=== PATIENT | female | born 1930 | race Caucasian/White ===

== ENCOUNTER 2021-03-16 10:59 | Emergency (ER) | payer MEDICARE, OTHER ==
[~2021-03-16] VITALS: Ht 157.5 cm; Wt 52.7 kg
--- NOTE | 2021-03-16 11:14 | PHYS DOC ---
General Adult HPI: HPI: Patient is a 89-year-old female who presents for fall. This was witnessed, patient is here with daughter who is primary historian is patient has Alzheimer's dementia. Daughter reports they were shopping at [employer] and daughter claims "it was my fault, she wanted to push the cart by herself and I let her. She lost balance and started falling backwards and I could not catch her". States patient fell backwards hitting her posterior head, there was no loss of consciousness or seizure-like activity, patient has been at baseline mentation, no bladder or bowel incontinence since accident. There were no prodromal symptoms reported per daughter and patient. Daughter does report that patient is seen in outpatient setting by a memory life care planner, it was recommended that she come have a urinalysis performed Review of Systems: Review of Systems: Fourteen body systems of review of systems have been reviewed. See HPI for pertinent positives and negative responses, other vázquez all other systems are negative, non-pertinent or non-contributory Heart Score: C/O Chest Pain: No HEART Score for Chest Pain: HEART Score for Chest Pain Response (Comments) Value History Slighlty/Non-Suspicious 0 ECG Nonspecific Repolarizatio 1 Age > 65 2 Risk Factors >3 Risk Factors or Hx CAD 2 Troponin < Normal Limit 0 Total 5 Risk Factors: Risk Factors: DM, Current or recent (<one month) smoker, HTN, HLP, family history of CAD, obesity. Risk Scores: Score 0 - 3: 2.5% MACE over next 6 weeks - Discharge Home Score 4 - 6: 20.3% MACE over next 6 weeks - Admit for Clinical Observation Score 7 - 10: 72.7% MACE over next 6 weeks - Early Invasive Strategies Physical Exam: PE: Constitutional: Ambulatory and able to transfer with assistance to ER cot. Pt appears well- developed and well-nourished. Age-appropriate in no acute distress HEENT: Head: Normocephalic with mild hematoma present to posterior occiput and minute laceration proximately 1 mm noted to posterior occiput with minimal bleeding present TMs clear, no hemotympanum Conjunctivae and EOM are normal. Pupils are equal, round, and reactive to light. Oropharynx is clear and moist. OP clear, no blood, no malocclusion, dentition intact Nares clear, no nasal septal hematoma Midface stable Neck: C-spine midline nontender, no step-offs Cardiovascular: Normal rate, regular rhythm and normal heart sounds. Pulmonary/Chest: Effort normal and breath sounds normal. No respiratory distress. No wheezes. CTA bilaterally Abdominal: Soft. Bowel sounds are normal. Pt exhibits no distension. There is no tenderness. Musculoskeletal: No bony tenderness to extremities, no deformities, full ROM extremities Chest wall stable Pelvis stable and non-tender No vertebral TTP and spine without stepoffs Neurological: Moving all extremities willfully, able to wiggle all fingers and toes Alert and oriented to person, at baseline mentation per daughter who is at bedside Motor and sensory function fully intact No saddle anesthesia Cranial nerves II through XII intact Skin: Skin is warm and dry. No abrasions, laceration to posterior head only as noted above Psychiatric: Behavior is appropriate for situation. Impaired memory secondary to Alzheimer's dementia Current Patient Data: Labs: Laboratory Tests Test 03/16/21 11:18 Urine Collection Type Unknown Urine Color Yellow Urine Clarity Clear Urine pH 5.5 Urine Specific [place] 1.010 Urine Protein Negative mg/dL Urine Glucose (UA) Negative mg/dL Urine Ketones (Stick) Negative mg/dL Urine Blood Trace Urine Nitrite Negative Urine Bilirubin Negative Urine Urobilinogen Dipstick 0.2 mg/dL Urine Leukocyte Esterase Small Urine RBC Occ /HPF Urine WBC Occ /HPF Urine Squamous Epithelial Cells Few /LPF Urine Renal Epithelial Cells Occ /LPF Urine Bacteria 0 /HPF Current Medications Medications (Trade) Dose Ordered Sig/Salvador Route PRN Reason Start Time Stop Time Status Last Admin Dose Admin Cefdinir (Omnicef) 300 mg BID PO 03/16/21 12:30 03/16/21 13:38 DC 03/16/21 12:50 Diphtheria/ Tetanus/Acell Pertussis (ADACEL TDap SYRINGE) 0.5 ml ONCE ONCE VAX IM 03/16/21 12:30 03/16/21 12:31 DC 03/16/21 12:52 Vital Signs: Vital Signs Date Time Temp Pulse Resp B/P (MAP) Pulse Ox O2 Delivery O2 Flow Rate FiO2 03/16/21 11:20 99.0 81 16 182/79 (113) 96 Room Air 99.0 Vital Signs Date Time Temp Pulse Resp B/P (MAP) Pulse Ox O2 Delivery O2 Flow Rate FiO2 03/16/21 11:20 99.0 81 16 182/79 (113) 96 Room Air 99.0 EKG: EKG: EKG ordered and interpreted by myself 11 954 hours as a ventricular paced rhythm at 75 bpm, QRS 156, QTc 497 otherwise unremarkable intervals, left axis deviation, T wave inversion noted in lead aVR, no STEMI Radiology/Procedures: Radiology/Procedures: EXAM: CT head and cervical spine without contrast INDICATION: Fall 2 posterior head. On Plavix COMPARISON: CT head and C-spine 11/11/2020 TECHNIQUE: Axial CT imaging through the head and cervical spine without intravenous contrast. Sagittal and coronal reformats were obtained. One or more of the following individualized dose reduction techniques were utilized for this examination: 1. Automated exposure control 2. Adjustment of the mA and/or kV according to patient size 3. Use of iterative reconstruction technique. FINDINGS: CT head: No intracranial hemorrhage, acute infarct, or mass lesion. Ventricles and sulci are moderately enlarged, unchanged. There is mild periventricular deep white matter hypoattenuation. The skull is intact. Paranasal sinuses and mastoid air cells are clear. Globes and orbits are intact. There is a large posterior scalp hematoma. CT cervical spine: No acute fracture. Alignment is normal. There is mild disc space narrowing at C3-C4 through C6-C7. There is mild multilevel facet arthrosis and uncovertebral joint proliferation resulting in foraminal narrowing at C3 C4-C7, greatest at C5-C6. Small disc complexes at C3 and C3-C4. Prevertebral soft tissues normal. The opacifications the carotid arteries. IMPRESSION: 1. No acute intracranial abnormality. Large posterior scalp hematoma. 2. No acute osseous abnormality of the cervical spine. Electronically signed by: Laura Neal MD (03/16/2021 12:09 PM) [id number] Course & Med Decision Making: Course & Med Decision Making ABCs unremarkable. I disclosed entirety of ER findings and discussed most likely diagnosis of simple head laceration and high risk individual and complicated UTI. Wound cleaned and irrigated, evaluated for foreign bodies but none were present. I discussed potential need for intervention but given size, joint decision between myself and daughter to defer, head was wrapped with gauze and supportive care advised. Tetanus vaccine updated. Given patient's recent UTI symptoms and urinalysis today, joint decision to treat for complicated UTI with cefdinir. Patient tolerated 1 dose in ER with subsequent prescription written. Ultimately I discussed need for close outpatient follow-up, patient has memory unit physician follow-up tomorrow which I advised her to keep to review today's ER visit. Strict return precautions were also discussed at length with good understanding by patient's daughter. Patient's daughter voiced understanding and agreement with the plan. Patient's daughter knows to come back for repeat evaluation if concerning signs or symptoms present prior to outpatient follow- up. Hemodynamically stable, ambulatory and well-appearing at time of disposition. Dragon Disclaimer: Dragon Disclaimer: This electronic medical record was generated, in whole or in part, using a voice recognition dictation system. Departure Departure Impression: Primary Impression: Fall Additional Impressions: Laceration of head Complicated UTI (urinary tract infection) Disposition: HOME / SELF CARE / HOMELESS Condition: STABLE Referrals: JAIDA LEE DO (PCP) Patient Instructions: Facial or Scalp Contusion, Laceration Care, Adult Additional Instructions: As discussed prior to your departure, your vitals, physical examination and comprehensive work-up was unremarkable for any emergent or surgical issues. With that said, you did suffer a small laceration and subsequent hematoma to your posterior head. Nothing of which required aggressive intervention such as sutures or advanced repair. Your tetanus was updated today. Please use attached resources for education on how to best clean area and reduce risk of infection. In addition, your urine was checked and concerning for a UTI, given your age and comorbidities it is classified as complicated in nature. You are given a dose of antibiotic while in the ER and a prescription was subsequently given to you on departure. Please fill this and take as scheduled to completion. If any concerning signs or symptoms present prior to outpatient follow-up please do not hesitate to come back for repeat evaluation. It was a pleasure to take care of you and I wish you the best going forward Scripts Cefdinir (CEFDINIR) 300 Mg Capsule 1 CAP PO BID for 10 Days, #20 CAP Prov: BEBO MANRIQUE DO 03/16/21 BEBO MANRIQUE DO Mar 16, 2021 11:14
[2021-03-16 11:59] LABS: BILIRUBIN,URINE NEGATIVE (NEG); CLARITY,URINE CLEAR; COLOR,URINE YELLOW; NITRITE,URINE NEGATIVE (NEG); PH,URINE 5.5 (<5.0-8.0); PROTEIN,URINE NEGATIVE (NEG-TRACE); UROBILINOGEN,URINE 0.2 mg/dL (0.2 mg/dL)
--- NOTE | 2021-03-16 12:11 | RAD ---
EXAM: CT head and cervical spine without contrast INDICATION: Fall 2 posterior head. On Plavix COMPARISON: CT head and C-spine 11/11/2020 TECHNIQUE: Axial CT imaging through the head and cervical spine without intravenous contrast. Sagitta l and coronal reformats were obtained. One or more of the following individualized dose reduction techniques were utilized for this examinat ion: 1. Automated exposure control 2. Adjustment of the mA and/or kV according to patient size 3. Use of iterative reconstruction technique. FINDINGS: CT head: No intracranial hemorrhage, acute infarct, or mass lesion. Ventricles and sulci are moderately enlarg ed, unchanged. There is mild periventricular deep white matter hypoattenuation. The skull is intact. Paranasal sinuses and mastoid air cells are clear. Globes and orbits are intact. There is a large pos terior scalp hematoma. CT cervical spine: No acute fracture. Alignment is normal. There is mild disc space narrowing at C3-C4 through C6-C7. Th ere is mild multilevel facet arthrosis and uncovertebral joint proliferation resulting in foraminal n arrowing at C3 C4-C7, greatest at C5-C6. Small disc complexes at C3 and C3-C4. Prevertebral soft tiss ues normal. The opacifications the carotid arteries. IMPRESSION: 1. No acute intracranial abnormality. Large posterior scalp hematoma. 2. No acute osseous abnormality of the cervical spine. Electronically signed by: Laura Neal MD (03/16/2021 12:09 PM) [id number]
[2021-03-16 12:15] LABS: BACTERIA,URINE 0 /HPF (0-FEW); RBC,URINE OCC /HPF (0-2); WBC,URINE OCC /HPF (0-4)
[2021-03-16] MEDS ORDERED: CEFD300C PO (12:25)
[2021-03-16] MEDS ORDERED: CEFDINIR 300 MG CAPSULE PO SCH (12:30)
[2021-03-16] MEDS ORDERED: DIPH,PERTUSS(ACELL),TET VAC/PF 0.5 ML SYRINGE. VAX IM ONE (12:30)
[2021-03-16 13:18] VITALS: BP 146/70
--- NOTE | 2021-03-16 13:56 | EKG ---
[facility] [address] [place] [address] Test Date: 2021-03-16 Test Time: 11:44:07 Pat Name: DENA NELSON Department: Room: Gender: F Irrigation Flume Layer: : 1930 Requested By: BEBO MANRIQUE Order Number: [id number] Reading MD: Jac Acosta Measurements Intervals Converse Rate: 75 P: 36 TN: 194 QRS: -90 QRSD: 156 T: 31 QT: 442 QTc: 497 Interpretive Statements ATRIAL SENSED VENTRICULAR PACED RHYTHM Electronically Signed On 03-18-2021 12:00:16 CDT by Jac Acosta
== END 2021-03-16 13:15 | disposition home or self-care (01) ==
LOC: ER 10:59
DX: S01.91XA Laceration without foreign body of unspecified part of head, initial encounter (principal); G30.9 Alzheimer's disease, unspecified; F02.80 Dementia in other diseases classified elsewhere, unspecified severity, without behavioral disturbance, psychotic disturbance, mood disturbance, and anxiety; W18.09XA Striking against other object with subsequent fall, initial encounter; Y93.89 Activity, other specified; Y92.89 Other specified places as the place of occurrence of the external cause; Y99.8 Other external cause status
CPT/HCPCS: 70450; 72125; 81001; 87086; 90471; 90715; 93005; 99285-25